=== PATIENT | female | born 1990 | race Caucasian/White ===

== ENCOUNTER 2016-04-28 17:21 | Emergency (ER) | payer OTHER ==
[~2016-04-28] VITALS: Ht 167.6 cm; Wt 48.0 kg
[~2016-04-28 17:21] MED LIST: NAPR500 PO; ULTR50TA PO; VENTAER INH; ZOFR4TAB3 PO
[2016-04-28 17:24] VITALS: BP 143/79; PULSE 96; RESP 16; TEMP 97.7; O2SAT 96
--- NOTE | 2016-04-28 17:33 | PD ---
HPI Chief Complaint: GI Complaint Time Seen by Provider: 17:33 Travel History International Travel<30 days: No Contact w/Intl Traveler<30days: No Traveled to known affect area: No PFSH Past Medical History Arthritis: No Asthma: Yes Autoimmune Disease: Yes (JOCELINE GAYTAN) Anxiety: Yes Cancer: No Cardiovascular Problems: No COPD: No Diminished Hearing: No Endocrine: No Fibromyalgia: Yes Gastrointestinal Disorders: Yes (heavy periods-hx of stomach problems) Musculoskeletal: Yes (FIBROMYALGIA, INDIRA DAMLOS) Neurologic: No Respiratory: Yes Immunizations Current: Yes Sleep Apnea: No ?: Not LMP: NONE : 1 Para: 0 Miscarriage: 1 Ovarian Cysts: Yes Past Surgical History Abdominal Surgery: Yes (APPENDECTOMY) Appendectomy: Yes (2008) Cardiac Surgery: No Ear Surgery: No Endocrine Surgery: No Eye Surgery: No Genitourinary Surgery: No Gynecologic Surgery: No Oral Surgery: No Thoracic Surgery: No Social History Alcohol Use: Yes (OFTEN PER PT) Tobacco Use: Yes (E-CIG) Substance Use: Yes (MARIJUANA DAILY) Allergies-Medications (Allergen,Severity, Reaction): Coded Allergies: Codeine (Verified Allergy, Severe, Nausea/Vomiting, 06/01/15) Shellfish (Verified Allergy, Severe, Anaphylaxis, 06/01/15) Iodine (Verified Allergy, Unknown, 06/01/15) Reported Meds & Prescriptions Reported Meds & Active Scripts Active No Active Prescriptions or Reported Medications Data Data Last Documented VS Vital Signs Date Time Temp Pulse Resp B/P Pulse Ox O2 Delivery O2 Flow Rate FiO2 04/28/16 17:39 78 18 112/73 98 Room Air 04/28/16 17:24 97.7 MDM Scripts No Active Prescriptions or Reported Meds Teodora Beltran Apr 28, 2016 17:33
[2016-04-28 17:39] VITALS: BP 112/73; PULSE 78; RESP 18; O2SAT 98
[2016-04-28] MEDS ORDERED: SODIUM CHLORIDE 0.9% FLUSH 5 ML FLUSH IVF PRN (17:45)
--- NOTE | 2016-04-28 17:49 | PD ---
HPI Chief Complaint: GI Complaint Time Seen by Provider: 17:33 Travel History International Travel<30 days: No Contact w/Intl Traveler<30days: No Traveled to known affect area: No History of Present Illness HPI The patient was seen and examined in the presence of the nurse. This patient complains of abdominal pain. Duration is 10 hours. Location is epigastric and left upper quadrant. Patient has periodic flares of abdominal pain over years of time. This essentially is a flare of a chronic problem. Patient follows with Dr. Simpson for this. His partner Dr. Peggy Hurley called and the request for labs and CT to be done with a call to her afterwards. Symptoms are mild in severity at this time. No alleviating factors. She's had an appendectomy and at least 4 colonoscopy she reports but denies ever getting a real diagnosis for her pains PFSH Past Medical History Arthritis: No Asthma: Yes Autoimmune Disease: Yes (EPSTIEN GAYTAN) Anxiety: Yes Cancer: No Cardiovascular Problems: No COPD: No Diminished Hearing: No Endocrine: No Fibromyalgia: Yes Gastrointestinal Disorders: No (heavy periods-hx of stomach problems) Implanted Vascular Access Dvce: No Medical other: Yes (FIBROMYALGIA; OLU-GAYTAN) Musculoskeletal: Yes (FIBROMYALGIA, INDIRA DAMLOS) Neurologic: No Respiratory: Yes Immunizations Current: Yes Sleep Apnea: No ?: Not LMP: NONE : 1 Para: 0 Miscarriage: 1 Ovarian Cysts: Yes Past Surgical History Abdominal Surgery: Yes (APPENDECTOMY) Appendectomy: Yes (2008) Cardiac Surgery: No Ear Surgery: No Endocrine Surgery: No Eye Surgery: No Genitourinary Surgery: No Gynecologic Surgery: No Neurologic Surgery: No Oral Surgery: No Thoracic Surgery: No Other Surgery: Yes Social History Alcohol Use: No Tobacco Use: Yes (E-CIG) Substance Use: Yes (MARIJUANA DAILY) Allergies-Medications (Allergen,Severity, Reaction): Coded Allergies: Codeine (Verified Allergy, Severe, Nausea/Vomiting, 06/01/15) Shellfish (Verified Allergy, Severe, Anaphylaxis, 06/01/15) Iodine (Verified Allergy, Unknown, 06/01/15) Reported Meds & Prescriptions Reported Meds & Active Scripts Active No Active Prescriptions or Reported Medications Review of Systems General / Constitutional: No: Fever Eyes: No: Visual changes HENT: No: Headaches Cardiovascular: No: Chest Pain or Discomfort Respiratory: No: Shortness of Breath Gastrointestinal: Positive: Abdominal Pain Genitourinary: No: Dysuria Musculoskeletal: No: Pain Skin: No Rash Neurologic: No: Weakness Psychiatric: No: Depression Endocrine: No: Polydipsia Hematologic/Lymphatic: No: Easy Bruising Physical Exam Narrative GENERAL: Thin well-developed patient in no apparent distress. SKIN: Warm and dry. HEAD: Atraumatic. Normocephalic. EYES: Pupils equal and round. No scleral icterus. No injection or drainage. ENT: No nasal bleeding or discharge. Mucous membranes pink and moist. NECK: Trachea midline. No JVD. CARDIOVASCULAR: Regular rate and rhythm. No murmur appreciated. RESPIRATORY: No accessory muscle use. Clear to auscultation. Breath sounds equal bilaterally. GASTROINTESTINAL: Abdomen soft, non-tender, nondistended. Hepatic and splenic margins not palpable. MUSCULOSKELETAL: No obvious deformities. No clubbing. No cyanosis. No edema. NEUROLOGICAL: Awake and alert. No obvious cranial nerve deficits. Motor grossly within normal limits. Normal speech. PSYCHIATRIC: Appropriate mood and affect; insight and judgment normal. Data Data Last Documented VS Vital Signs Date Time Temp Pulse Resp B/P Pulse Ox O2 Delivery O2 Flow Rate FiO2 04/28/16 17:39 78 18 112/73 98 Room Air 04/28/16 17:24 97.7 Orders Complete Blood Count With Diff (04/28/16 17:44) Comprehensive Metabolic Panel (04/28/16 17:44) Lipase (04/28/16 17:44) Iv Access Insert/Monitor (04/28/16 17:44) Ecg Monitoring (04/28/16 17:44) Oximetry (04/28/16 17:44) NPO (04/28/16 17:44) Sodium Chloride 0.9% Flush (Ns Flush) (04/28/16 17:45) Ed Urine Pregnancytest Poc (04/28/16 17:44) Ketorolac Inj (Toradol Inj) (04/28/16 18:15) Ct Abd/Pel W/O Iv Contrast (04/28/16 17:44) Labs Laboratory Tests Test 04/28/16 17:45 White Blood Count 10.4 TH/MM3 Red Blood Count 4.52 MIL/MM3 Hemoglobin 13.9 GM/DL Hematocrit 41.3 % Mean Corpuscular Volume 91.3 FL Mean Corpuscular Hemoglobin 30.7 PG Mean Corpuscular Hemoglobin 33.6 % Concent Red Cell Distribution Width 14.8 % Platelet Count 232 TH/MM3 Mean Platelet Volume 10.6 FL Neutrophils (%) (Auto) 76.9 % Lymphocytes (%) (Auto) 17.2 % Monocytes (%) (Auto) 5.2 % Eosinophils (%) (Auto) 0.4 % Basophils (%) (Auto) 0.3 % Neutrophils # (Auto) 8.0 TH/MM3 Lymphocytes # (Auto) 1.8 TH/MM3 Monocytes # (Auto) 0.5 TH/MM3 Eosinophils # (Auto) 0.0 TH/MM3 Basophils # (Auto) 0.0 TH/MM3 CBC Comment DIFF FINAL Differential Comment Sodium Level 138 MEQ/L Potassium Level 3.8 MEQ/L Chloride Level 103 MEQ/L Carbon Dioxide Level 25.3 MEQ/L Anion Gap 10 MEQ/L Blood Urea Nitrogen 11 MG/DL Creatinine 0.70 MG/DL Estimat Glomerular Filtration 103 ML/MIN Rate Random Glucose 96 MG/DL Calcium Level 8.9 MG/DL Total Bilirubin 1.0 MG/DL Aspartate Amino Transf 16 U/L (AST/SGOT) Alanine Aminotransferase 23 U/L (ALT/SGPT) Alkaline Phosphatase 43 U/L Total Protein 7.6 GM/DL Albumin 4.2 GM/DL Lipase 112 U/L [facility] Medical Decision Making Medical Screen Exam Complete: Yes Emergency Medical Condition: Yes Medical Record Reviewed: Yes Differential Diagnosis Pancreatitis, colitis, irritable bowel syndrome Narrative Course I have reviewed the patient's electronic medical record. Reviewed her June [address] admission for [address] of abdomen and pelvis was normal at that time IV placed Labs and CT of abdomen and pelvis ordered Her abdomen is soft and benign and nontender. She looks minimally symptomatic at this point CBC is normal Metabolic profile is normal Lipase is normal LFTs are normal Will check this patient out to eating physician and have them discuss results with Dr. Hurley. Scripts No Active Prescriptions or Reported Meds Froylan Robles MD Apr 28, 2016 17:49
[2016-04-28 18:03] LABS: BASOPHIL % 0.3 % (0.0-2.0); EOSINOPHIL % 0.4 % (0.0-4.0); HEMATOCRIT 41.3 % (35.0-46.0); HEMO FLAGS DIFF FINAL; LYMPH % 17.2 % (9.0-44.0); LYMPHOCYTE # 1.8 TH/MM3 (1.0-4.8); MEAN CELL VOLUME 91.3 FL (80.0-100.0); MEAN CORPUSCULAR HEMOGLOBIN 30.7 PG (27.0-34.0); MEAN CORPUSCULAR HGB CONC 33.6 % (32.0-36.0); MONO % 5.2 % (0.0-8.0); NEUT % 76.9 % (16.0-70.0); PLATELET COUNT 232 TH/MM3 (150-450); RED BLOOD COUNT 4.52 MIL/MM3 (4.00-5.30); RED CELL DISTRIBUTION WIDTH 14.8 % (11.6-17.2); WHITE BLOOD COUNT 10.4 TH/MM3 (4.0-11.0)
[2016-04-28] MEDS ORDERED: KETOROLAC TROMETHAMINE 30 MG/ML (IVP) VIAL IVP ONE (18:15)
[2016-04-28 18:16] LABS: ANION GAP 10 MEQ/L (5-15); AST (GOT) 16 U/L (15-37); BICARBONATE 25.3 MEQ/L (21.0-32.0); BLOOD UREA NITROGEN 11 MG/DL (7-18); CHLORIDE 103 MEQ/L (98-107); GLOMERULAR FILTRATION RATE 103 ML/MIN (>89); POTASSIUM 3.8 MEQ/L (3.5-5.1); SODIUM (NA) 138 MEQ/L (136-145)
[2016-04-28 18:19] LABS: ALKALINE PHOSPHATASE 43 U/L (45-117); ALT (GPT) 23 U/L (10-53)
[2016-04-28] MEDS ORDERED: ONDANSETRON HCL 4 MG/2 ML VIAL IV PUSH ONE (19:30)
--- NOTE | 2016-04-28 19:56 | PD ---
Physical Exam Narrative Patient was seen by ED physician and signed out to me. 1952 PM. Patient changes her mind and does not want a CT scan of the abdomen pelvis. Patient wants to leave and follow-up with her personal physician. Data Data Last Documented VS Vital Signs Date Time Temp Pulse Resp B/P Pulse Ox O2 Delivery O2 Flow Rate FiO2 04/28/16 17:39 78 18 112/73 98 Room Air 04/28/16 17:24 97.7 Orders Complete Blood Count With Diff (04/28/16 17:44) Comprehensive Metabolic Panel (04/28/16 17:44) Lipase (04/28/16 17:44) Iv Access Insert/Monitor (04/28/16 17:44) Ecg Monitoring (04/28/16 17:44) Oximetry (04/28/16 17:44) NPO (04/28/16 17:44) Sodium Chloride 0.9% Flush (Ns Flush) (04/28/16 17:45) Ed Urine Pregnancytest Poc (04/28/16 17:44) Ketorolac Inj (Toradol Inj) (04/28/16 18:15) Ct Abd/Pel W/O Iv Contrast (04/28/16 17:44) Ondansetron Inj (Zofran Inj) (04/28/16 19:30) Labs Laboratory Tests Test 04/28/16 17:45 White Blood Count 10.4 TH/MM3 Red Blood Count 4.52 MIL/MM3 Hemoglobin 13.9 GM/DL Hematocrit 41.3 % Mean Corpuscular Volume 91.3 FL Mean Corpuscular Hemoglobin 30.7 PG Mean Corpuscular Hemoglobin 33.6 % Concent Red Cell Distribution Width 14.8 % Platelet Count 232 TH/MM3 Mean Platelet Volume 10.6 FL Neutrophils (%) (Auto) 76.9 % Lymphocytes (%) (Auto) 17.2 % Monocytes (%) (Auto) 5.2 % Eosinophils (%) (Auto) 0.4 % Basophils (%) (Auto) 0.3 % Neutrophils # (Auto) 8.0 TH/MM3 Lymphocytes # (Auto) 1.8 TH/MM3 Monocytes # (Auto) 0.5 TH/MM3 Eosinophils # (Auto) 0.0 TH/MM3 Basophils # (Auto) 0.0 TH/MM3 CBC Comment DIFF FINAL Differential Comment Sodium Level 138 MEQ/L Potassium Level 3.8 MEQ/L Chloride Level 103 MEQ/L Carbon Dioxide Level 25.3 MEQ/L Anion Gap 10 MEQ/L Blood Urea Nitrogen 11 MG/DL Creatinine 0.70 MG/DL Estimat Glomerular Filtration 103 ML/MIN Rate Random Glucose 96 MG/DL Calcium Level 8.9 MG/DL Total Bilirubin 1.0 MG/DL Aspartate Amino Transf 16 U/L (AST/SGOT) Alanine Aminotransferase 23 U/L (ALT/SGPT) Alkaline Phosphatase 43 U/L Total Protein 7.6 GM/DL Albumin 4.2 GM/DL Lipase 112 U/L [facility] Supervised Visit with KARELY: No Narrative Course 25-year-old female abdominal pain. Patient was seen by ED physician and consulting with Dr. Carisa Hurley. Dr. Hurley requests CT scan abdomen pelvis. Patient originally agreed to CT and now changed her mind and wants to leave without CT done. [address] Hurley notified. Diagnosis Primary Impression: Recurrent abdominal pain Patient Instructions: General Instructions Additional Instruction: Take medications as directed. Follow-up with personal physician and GI specialist and rectal surgeon. Return if worse. Med/Other Pt SpecificInfo: No Change to Meds Scripts No Active Prescriptions or Reported Meds Disposition: 01 DISCHARGE HOME Condition: Stable Mark Juan MD Apr 28, 2016 19:56
== END 2016-04-28 20:06 | disposition home or self-care (01) ==
LOC: NEPC 17:21
DX: R10.9 Unspecified abdominal pain (principal); M35.9 Systemic involvement of connective tissue, unspecified; F12.20 Cannabis dependence, uncomplicated; F10.10 Alcohol abuse, uncomplicated
CPT/HCPCS: 80053; 83690; 84703; 85025; 96374; 96375; 99284; J1885; J2405

== ENCOUNTER 2017-05-01 03:29 | Emergency (ER) | payer OTHER ==
[~2017-05-01] VITALS: Ht 167.6 cm; Wt 46.7 kg
[2017-05-01 03:35] VITALS: BP 125/61; PULSE 64; RESP 20; TEMP 97.4; O2SAT 99
[2017-05-01 04:08] VITALS: BP 125/61; PULSE 64; RESP 18; TEMP 97.4; O2SAT 99
[2017-05-01 04:48] LABS: AUTOMATED NEUTROPHIL # 10.8 TH/MM3 (1.8-7.7); BASOPHIL % 0.3 % (0.0-2.0); EOSINOPHIL % 0.1 % (0.0-4.0); HEMATOCRIT 43.8 % (35.0-46.0); HEMOGLOBIN 14.6 GM/DL (11.6-15.3); LYMPH % 12.4 % (9.0-44.0); LYMPHOCYTE # 1.6 TH/MM3 (1.0-4.8); MEAN CELL VOLUME 91.4 FL (80.0-100.0); MEAN CORPUSCULAR HEMOGLOBIN 30.4 PG (27.0-34.0); MEAN CORPUSCULAR HGB CONC 33.3 % (32.0-36.0); MEAN PLATELET VOLUME 11.2 FL (7.0-11.0); MONO % 2.1 % (0.0-8.0); MONOCYTE # 0.3 TH/MM3 (0-0.9); NEUT % 85.1 % (16.0-70.0); PLATELET COUNT 204 TH/MM3 (150-450); RED BLOOD COUNT 4.79 MIL/MM3 (4.00-5.30); RED CELL DISTRIBUTION WIDTH 12.6 % (11.6-17.2); WHITE BLOOD COUNT 12.7 TH/MM3 (4.0-11.0)
[2017-05-01 04:50] LABS: CHLORIDE 108 MEQ/L (98-107); SODIUM (NA) 139 MEQ/L (136-145)
[2017-05-01 04:53] LABS: CALCIUM 8.5 MG/DL (8.5-10.1)
[2017-05-01 04:54] LABS: ALBUMIN 4.2 GM/DL (3.4-5.0); BICARBONATE 17.5 MEQ/L (21.0-32.0); BLOOD UREA NITROGEN 14 MG/DL (7-18); GLUCOSE,RANDOM 136 MG/DL (74-106)
[2017-05-01 04:56] LABS: ALT (GPT) 31 U/L (10-53)
[2017-05-01 04:57] LABS: AST (GOT) 29 U/L (15-37); CREATININE 0.82 MG/DL (0.50-1.00); GLOMERULAR FILTRATION RATE 85 ML/MIN (>89)
[2017-05-01 04:58] LABS: TOTAL BILIRUBIN ADULT 0.6 MG/DL (0.2-1.0); TOTAL PROTEIN 7.7 GM/DL (6.4-8.2)
[2017-05-01 04:59] LABS: ALKALINE PHOSPHATASE 52 U/L (45-117)
[2017-05-01] MEDS ORDERED: ONDANSETRON HCL 4 MG/2 ML VIAL IV ONE (05:15)
[2017-05-01] MEDS ORDERED: LORazepam 2 MG/ML VIAL IV PUSH ONE (05:15)
[2017-05-01 05:24] VITALS: BP 101/61; PULSE 65; RESP 18; O2SAT 99
[2017-05-01 06:19] VITALS: BP 103/65; PULSE 55; RESP 18; O2SAT 99
[2017-05-01] MEDS ORDERED: PROC10TA PO (06:39)
[2017-05-01] MEDS ORDERED: ALPR.5 PO (06:39)
--- NOTE | 2017-05-01 06:41 | PD ---
HPI Chief Complaint: GI Complaint Time Seen by Provider: 05:13 Travel History International Travel<30 days: No Contact w/Intl Traveler<30days: No Traveled to known affect area: No History of Present Illness HPI The patient is a 26-year-old female that complains of nausea and vomiting without diarrhea and with abdominal pain in the midline epigastrium for 1 day. The patient is spent in multiple times for this and sees Dr. Vines because of her recurrent bouts of nausea and vomiting. She denies any fever. 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 Now it is recurrent vomiting etiology undetermined PFSH Past Medical History Arthritis: No Asthma: Yes Autoimmune Disease: Yes (MYLATIERaphael GAYTAN) Anxiety: Yes Cancer: No Cardiovascular Problems: No COPD: No Diminished Hearing: No Endocrine: No Fibromyalgia: Yes Gastrointestinal Disorders: No (heavy periods-hx of stomach problems) Implanted Vascular Access Dvce: No Medical other: Yes (FIBROMYALGIA; OLU-GAYTAN) Musculoskeletal: Yes (FIBROMYALGIA, INDIRA DAMLOS) Neurologic: No Respiratory: Yes Immunizations Current: Yes Sleep Apnea: No Tetanus Vaccination: Unknown Influenza Vaccination: Yes ?: Unknown : 1 Para: 0 Miscarriage: 1 Ovarian Cysts: Yes Past Surgical History Abdominal Surgery: Yes (APPENDECTOMY) Appendectomy: Yes (2008) Cardiac Surgery: No Ear Surgery: No Endocrine Surgery: No Eye Surgery: No Genitourinary Surgery: No Gynecologic Surgery: No Neurologic Surgery: No Oral Surgery: No Thoracic Surgery: No Other Surgery: Yes Social History Alcohol Use: No Tobacco Use: Yes (E-CIG) Substance Use: Yes (MARIJUANA DAILY) Allergies-Medications (Allergen,Severity, Reaction): Coded Allergies: codeine (Unverified Allergy, Severe, Nausea/Vomiting, 05/01/17) shellfish derived (Unverified Allergy, Severe, Anaphylaxis, 05/01/17) iodine (Unverified Allergy, Unknown, 05/01/17) potassium iodide (Unverified Allergy, Unknown, 05/01/17) povidone-iodine (Unverified Allergy, Unknown, 05/01/17) sodium iodide (Unverified Allergy, Unknown, 05/01/17) sodium iodide (Unverified Allergy, Unknown, 05/01/17) Reported Meds & Prescriptions Reported Meds & Active Scripts Active No Active Prescriptions or Reported Medications Review of Systems Except as stated in HPI: all other systems reviewed are Neg Physical Exam Narrative GENERAL: The patient appears moderately dehydrated but is alert, oriented 3 in moderate distress with her constant retching. Her vital signs are normal. The patient is extremely anxious. SKIN: Focused skin assessment warm/dry. HEAD: Atraumatic. Normocephalic. EYES: Pupils equal and round. No scleral icterus. No injection or drainage. ENT: No nasal bleeding or discharge. Mucous membranes pink and moist. NECK: Trachea midline. No JVD. CARDIOVASCULAR: Regular rate and rhythm. No murmur appreciated. RESPIRATORY: No accessory muscle use. Clear to auscultation. Breath sounds equal bilaterally. GASTROINTESTINAL: Abdomen soft, with tenderness to direct palpation in the midline epigastrium, nondistended. Hepatic and splenic margins not palpable. No guarding or rebound is present. MUSCULOSKELETAL: No obvious deformities. No clubbing. No cyanosis. No edema. NEUROLOGICAL: Awake and alert. No obvious cranial nerve deficits. Motor grossly within normal limits. Normal speech. PSYCHIATRIC: The patient is extremely anxious; insight and judgment normal. Data Data Last Documented VS Vital Signs Date Time Temp Pulse Resp B/P (MAP) Pulse Ox O2 Delivery O2 Flow Rate FiO2 05/01/17 06:19 55 18 103/65 (78) 99 Room Air 05/01/17 04:08 97.4 Orders Orders Complete Blood Count With Diff (05/01/17 04:24) Comprehensive Metabolic Panel (05/01/17 04:24) Lipase (05/01/17 04:24) Urinalysis - C+S If Indicated (05/01/17 04:24) Ondansetron Inj (Zofran Inj) (05/01/17 05:15) Lorazepam Inj (Ativan Inj) (05/01/17 05:15) Labs Laboratory Tests Test 05/01/17 04:25 White Blood Count 12.7 TH/MM3 Red Blood Count 4.79 MIL/MM3 Hemoglobin 14.6 GM/DL Hematocrit 43.8 % Mean Corpuscular Volume 91.4 FL Mean Corpuscular Hemoglobin 30.4 PG Mean Corpuscular Hemoglobin Concent 33.3 % Red Cell Distribution Width 12.6 % Platelet Count 204 TH/MM3 Mean Platelet Volume 11.2 FL Neutrophils (%) (Auto) 85.1 % Lymphocytes (%) (Auto) 12.4 % Monocytes (%) (Auto) 2.1 % Eosinophils (%) (Auto) 0.1 % Basophils (%) (Auto) 0.3 % Neutrophils # (Auto) 10.8 TH/MM3 Lymphocytes # (Auto) 1.6 TH/MM3 Monocytes # (Auto) 0.3 TH/MM3 Eosinophils # (Auto) 0.0 TH/MM3 Basophils # (Auto) 0.0 TH/MM3 CBC Comment DIFF FINAL Differential Comment Blood Urea Nitrogen 14 MG/DL Creatinine 0.82 MG/DL Random Glucose 136 MG/DL Total Protein 7.7 GM/DL Albumin 4.2 GM/DL Calcium Level 8.5 MG/DL Alkaline Phosphatase 52 U/L Aspartate Amino Transf (AST/SGOT) 29 U/L Alanine Aminotransferase (ALT/SGPT) 31 U/L Total Bilirubin 0.6 MG/DL Sodium Level 139 MEQ/L Potassium Level 3.5 MEQ/L Chloride Level 108 MEQ/L Carbon Dioxide Level 17.5 MEQ/L Anion Gap 14 MEQ/L Estimat Glomerular Filtration Rate 85 ML/MIN Lipase 80 U/L [facility] Medical Decision Making Medical Screen Exam Complete: Yes Emergency Medical Condition: Yes Medical Record Reviewed: Yes Interpretation(s) The CBC shows a white count of 12,700 with 85% neutrophils but is otherwise unremarkable. The complete metabolic profile shows a bicarb of 17.5, GFR of 85 , glucose 136 but is otherwise unremarkable. Differential Diagnosis Gastroparesis, intractable vomiting, anxiety, dehydration, electrolyte disorder Narrative Course The patient has recurrent vomiting. She appears slightly dehydrated but is now able to drink fluids without a problem. The patient also has anxiety. Plan: The patient will be given Xanax 0.5 mg #15 and Compazine 10 mg #30. Diagnosis Primary Impression: Recurrent vomiting Additional Impression: Anxiety Patient Instructions: General Instructions Departure Forms: Work Release, Enter return to work date: May 05, 2017 Tests/Procedures Med/Other Pt SpecificInfo: Prescription(s) given Scripts Prochlorperazine Maleate (Prochlorperazine Maleate) 10 Mg Tab 10 MG PO Q6H Y for NAUSEA OR VOMITING, #30 TAB 0 Refills Prov: Garth Monaco MD 05/01/17 Alprazolam (Xanax) 0.5 Mg Tab 0.5 MG PO Q4H Y for ANXIETY, #15 TAB 0 Refills Prov: Garth Monaco MD 05/01/17 Disposition: 01 DISCHARGE HOME Condition: Stable Garth Monaco MD May 01, 2017 06:40
== END 2017-05-01 06:53 | disposition home or self-care (01) ==
LOC: PHED 03:29
DX: R11.10 Vomiting, unspecified (principal); F41.9 Anxiety disorder, unspecified; J45.909 Unspecified asthma, uncomplicated; M79.7 Fibromyalgia; Z72.0 Tobacco use; Z88.8 Allergy status to other drugs, medicaments and biological substances; Z88.5 Allergy status to narcotic agent; Z91.013 Allergy to seafood
CPT/HCPCS: 80053; 83690; 85025; 96374; 96375; 99284; J2060; J2405